=== PATIENT | male | born 1990 | race Caucasian/White ===

== ENCOUNTER → 2022-04-23 | Emergency (ER) | payer OTHER ==
[~2022-04-23] VITALS: Ht 188 cm; Wt 90.7 kg
== END | disposition home or self-care (01) ==
LOC: ER 19:16
DX: S61.012A Laceration without foreign body of left thumb without damage to nail, initial encounter (principal); W26.0XXA Contact with knife, initial encounter; Y93.G3 Activity, cooking and baking; Y92.010 Kitchen of single-family (private) house as the place of occurrence of the external cause; Y99.9 Unspecified external cause status